=== PATIENT | female | born 1985 | race Caucasian/White ===

== ENCOUNTER 2019-12-28 02:06 | Outpatient (CLI) | payer OTHER, SELFPAY ==
[2019-12-28 07:40] LABS: HCT 41.6 % (36.0-46.0); HGB 13.9 g/dL (12.0-15.5); Mean Corp. HGB Concentration 33.4 g/dL (32.0-36.0); Mean Corpuscular Hemoglobin 31.3 pg (27.0-33.0); Mean Corpuscular Volume 93.7 fL (80-95); Mean Platelet Volume 9.4 fL (8.0-11.0); Platelet Count 281 x1000/uL (130-400); RBC 4.44 m/cumm (4.00-5.20); RBC Distribution Width 11.8 % (11.7-14.6); White Blood Cell Count 5.56 k/cumm (4.4-10.8)
[2019-12-28 08:28] LABS: ALT 21 U/L (14-59); AST 13 U/L (15-37); Albumin 3.6 g/dL (3.4-5.0); Alkaline Phosphatase 42 U/L (46-116); Anion Gap 2.7 mmol/L (3-11); BUN 12 mg/dL (7-18); Bilirubin, Total 0.4 mg/dL (0.2-1.0); CO2 28.3 mmol/L (21.0-32.0); CREATININE 0.94 mg/dL (0.55-1.02); Calcium 9.1 mg/dL (8.5-10.1); Calculated LDL 103 mg/dL (<100); Chloride 102 mmol/L (98-107); Cholesterol 170 mg/dL (<200); Ferritin 20 ng/mL (8-252); Glucose 90 mg/dL (74-106); HDL Cholesterol 53 mg/dL (40-60); Magnesium 1.9 mg/dL (1.8-2.4); Potassium 4.3 mmol/L (3.5-5.1); Sodium 133 mmol/L (136-145); TSH (W/Ref FT4) 2.45 uIU/mL (0.36-3.74); Total Protein 6.8 g/dL (6.4-8.2); Triglyceride 74 mg/dL (<150)
[2019-12-30 04:52] LABS: Vitamin D 25 Total 61.4 ng/ml (30-100)
== END 2019-12-28 02:26 ==
PROVIDERS: PCP Student in an Organized Health Care Education/Training Program; Visit Provider Student in an Organized Health Care Education/Training Program
DX: E61.1 Iron deficiency (principal); K51.20 Ulcerative (chronic) proctitis without complications; K52.9 Noninfective gastroenteritis and colitis, unspecified; K58.9 Irritable bowel syndrome, unspecified; Z13.220 Encounter for screening for lipoid disorders; F32.9 Major depressive disorder, single episode, unspecified; F41.9 Anxiety disorder, unspecified; G43.909 Migraine, unspecified, not intractable, without status migrainosus; Z86.69 Personal history of other diseases of the nervous system and sense organs; N94.6 Dysmenorrhea, unspecified; E55.9 Vitamin D deficiency, unspecified; Q76.49 Other congenital malformations of spine, not associated with scoliosis; N84.0 Polyp of corpus uteri
CPT/HCPCS: 36415; 80053; 80061; 82306; 85027; 82728; 83735; 84443

== ENCOUNTER 2020-01-12 02:05 | Outpatient (CLI) | payer OTHER, SELFPAY ==
--- NOTE | 2020-01-12 06:15 | DI.US_ITS ---
EXAM: US PELVIS TRANSVAGINAL CLINICAL HISTORY: Hx uterine polyps, menorrhagia,N84.0,N92.0. TECHNIQUE: Transabdominal and transvaginal pelvic ultrasound was performed using standard protocol. COMPARISON: No exams were available for comparison FINDINGS: KIDNEYS: Kidneys are symmetric in size. No evidence of renal calculi. No evidence of hydronephrosis. No renal mass or cyst identified. UTERUS: Position: Anteverted. Size: 8.5 long by 4.8 AP by 5.7 transverse cm Endometrium: 0.4 cm. Normal for patient's menstrual status. There is a ovoid hypoechoic area within t he endometrium measuring 0.7 x 0.9 cm. Myometrium: 2 hypoechoic masses are seen arising from the uterus posteriorly. The larger measures 4. 6 x 4.5 x 6.0 cm. The smaller measures 4.4 x 4 x 4.1 cm. These are most suggestive of uterine fibro ids. Cervix: Unremarkable. OVARIES: Right: 3.7 x 2.2 x 2.4 cm Cyst or mass: Small follicular cysts. Left: 3.9 x 2.1 x 2.5 cm Cyst or mass: Small follicular cysts. DOPPLER: Color: Symmetric and uniform flow to both ovaries. No hyperemia. CUL-DE-SAC: Free fluid: Small amount of free fluid adjacent to the right ovary. Other: None. IMPRESSION: 1. Normal sonographic appearance of the kidneys. 2. 0.9 cm hypoechoic nodule within the endometrium. This may represent endometrial polyp. 3. Uterine fibroids. 4. Unremarkable bilateral ovaries. DATA REPOSITORY:
== END 2020-01-12 02:25 ==
PROVIDERS: PCP Student in an Organized Health Care Education/Training Program; Visit Provider Nurse Practitioner Women's Health
DX: N85.8 Other specified noninflammatory disorders of uterus (principal); D25.9 Leiomyoma of uterus, unspecified; N84.0 Polyp of corpus uteri; N92.0 Excessive and frequent menstruation with regular cycle
CPT/HCPCS: 76830; 76856

== ENCOUNTER 2020-03-20 03:38 | Outpatient (CLI) | payer OTHER, SELFPAY ==
[2020-03-20 14:37] LABS: HGB 13.3 g/dL (11.2-15.7); MCHC 33.3 % (32.0-36.0); MCV 93.2 fL (80-95); MPV 9.6 fL (8.0-11.0); Platelet Count 244 10^3/uL (130-400); RBC 4.29 10^6/uL (3.93-5.22); RDW 11.7 % (11.7-14.6); RDW-SD 40.1 fL; WBC 7.66 10^3/uL (4.4-10.8)
[2020-03-20 17:03] LABS: HCG Quant, Pregnancy < 1 mIU/mL (1-3)
== END 2020-03-20 03:58 ==
PROVIDERS: PCP Student in an Organized Health Care Education/Training Program; Visit Provider Obstetrics & Gynecology Gynecology
DX: Z01.818 Encounter for other preprocedural examination (principal)
CPT/HCPCS: 36415; 85027; 86850; 86900; 86901; 84702

== ENCOUNTER 2020-03-20 07:47 | Outpatient (CLI) | payer OTHER, SELFPAY ==
[2020-03-22 20:21] LABS: COVID-19 RT-PCR Result NEGATIVE (Negative)
== END 2020-03-20 08:07 ==
PROVIDERS: PCP Student in an Organized Health Care Education/Training Program; Visit Provider Obstetrics & Gynecology Gynecology
DX: Z11.59 Encounter for screening for other viral diseases (principal); Z01.818 Encounter for other preprocedural examination
CPT/HCPCS: U0003

== ENCOUNTER 2020-03-23 06:17 | Day surgery (SDC) | payer OTHER, SELFPAY ==
[2020-03-23 06:31] VITALS: BP 113/76; PULSE 66; RESP 17; TEMP 36.5; O2SAT 100
[2020-03-23] MEDS: Lactated Ringers 1,000 ML 125 ML IV (07:08)
[2020-03-23] MEDS: Bupivacaine 0.25% Pres-Free 30 ML VIAL (07:48)
--- NOTE | 2020-03-23 08:00 | ENDOMET_PTH ---
PATIENT: Kate Lewis LOC: [facility] U#:[id number] AGE/SX: 34/F ROOM: RE03/23/[address]: Marycarmen De La Torre : 1985 BED: DIS: 03/23/2020 SPEC #: [id number] RECD: 03/23/20 13:00 STATUS: MARLYN RENathaniel #: [id number] RICKY: 03/23/20 08:[address]: Marycarmen De La Torre DEPT: Surgical Specimen RECD BY: Teresa Gaston ENTERED: 03/23/20 13:01 SP TYPE: Endomet OTHR DR: Stefany Tapia DO Tissues: 1 - ENDOMETRIUM BX/CURRETTE Procedures: GROSS AND MICRO LEVEL 4 Comments: [id number]
[2020-03-23] MEDS: Silver Nitrate Stick 1 EACH (08:09)
[2020-03-23 08:17] VITALS: BP 98/58; PULSE 59; RESP 17; TEMP 36.4; O2SAT 98
[2020-03-23 08:22] VITALS: BP 95/57; PULSE 56; RESP 16; TEMP 36.4; O2SAT 99
[2020-03-23 08:27] VITALS: BP 94/57; PULSE 55; RESP 16; TEMP 36.4; O2SAT 99
--- NOTE | 2020-03-23 08:28 | W.PM.DSUDISC ---
Discharge Plan Disposition Patient Disposition: HOME Condition: Good Discharge Details Attending Provider: Marycarmen De La Torre Primary Care Provider: Stefany Tapia Home Meds and New Rx's Prescriptions: No Action lorazepam 0.5 mg tablet 0.25 mg PO DAILY PRNRF: 0 folic acid 400 mcg tablet 0.4 mg PO DAILY RF: 0 omega-3 fatty acids [Fish Oil Concentrate] 1,000 mg capsule 1,000 mg PO DAILY RF: 0 Complex B-100 Tablet Extended Release 1 tab PO DAILY RF: 0 cholecalciferol (vitamin D3) 125 mcg (5,000 unit) capsule 5,000 unit PO DAILY RF: 0 turmeric 400 mg capsule 1,000 mg PO DAILY RF: 0 magnesium gluconate [Mag-G] 27 mg magnesium (500 mg) tablet 200 mg PO DAILY RF: 0 ferrous sulfate 27 mg iron tablet 27 mg PO DAILY RF: 0 mesalamine [Canasa] 1,000 mg suppository 1 gm KS DAILY PRN PRN (Reason: pain, bleeding ) Qty: 42 RF: 3 zolmitriptan 5 mg tablet 5 mg PO DAILY PRN MDD 5mg PRN (Reason: migraine headache) Qty: 10 RF: 1 Discharge Instructions Additional Instructions: Keep your follow-up appointment [facility] Stand Alone Forms: DSU Post Gynecology Surgery Activity:: Activity as Tolerated Diet:: As Tolerated Discharge Orders Discharge Orders: Discharge Order (Routine); Ordered 03/23/20 Ordered By: Marycarmen De La Torre DS: Diagnosis Discharge Diagnosis (1) Abnormal uterine bleeding (AUB): Status: Chronic (2) Hx of dilation and curettage: Status: Acute
--- NOTE | 2020-03-23 08:32 | ROE_ITS ---
Date of service: 03/23/20 Time of Service: 08:32 Operative Note Operative Note DATE OF PROCEDURE: 03/23/20 PRE-OP DIAGNOSIS: abnormal uterine bleeding, endometrial polyp POST-OP DIAGNOSIS: same PROCEDURE: D&C, Hysteroscopy SURGEON: Marycarmen De La Torre ANESTHESIA: MAC ESTIMATED BLOOD LOSS: 5 PATHOLOGY: other (endometrial curettings to pathology) COMPLICATIONS: None Patient was transported to: PACU Patient's condition: stable Indications: 34-year-old G0 female with history of heavy uterine bleeding associated with menses. She is demonstrated fibroid uterus and solitary e ndometrial polyp. Her previous polypectomy was performed in 2016 and provided relief from her heavy irregular bleeding. Findings: Uterus sounded to 10 cm. On hysteroscope exam the endometrium appeared secretory. There was a discrete endometrial polyp at the left uterine sidewall on a broad-based stalk. Both tubal ostia were visualized. There was no evidence of distortion of the uterine cavity from intramural fibroids. Procedure Description: Patient was brought to the operating room where she was placed in the dorsal supine position and monitored anesthesia care was administered. SCDs were in place no antibiotics were administered. She was prepped and draped in the usual sterile fashion. A surgical timeout was performed. A bivalve speculum was placed into the vagina and the anterior lip of the cervix was infiltrated with 1 cc of 0 .25% percent Marcaine without epinephrine. Tenaculum was used to grasp the anterior cervical lip and a paracervical block was performed using 2 cc of quarter percent Marcaine respectively. The cervix was sequentially dilated to a maximum of 18 Sharma. A hysteroscope was inserted with normal saline as the distention medium. The uterine cavity was inspected with the above-noted findings. A serrated banjo curette was inserted into the uterine cavity and all 4 quadrants of the cavity were curetted. This is followed by the insertion of a polyp forcep which was used to remove endometrial tissue. The hysteroscope was reinserted the previously noted polyp had been removed. A second gentle curettage with the serrated curette was performed. Final inspection of the uterine cavity with the hysteroscope showed hemostatic endometrial lining and no intracavitary filling defects. Hysteroscope was removed and tenaculum was removed and was noted to be hemostatic. All instruments removed from the vagina. The patient was then placed in the dorsal supine position awakened from anesthesia and transported recovery in stable condition. All sponge lap and needle counts are correct x2.
[2020-03-23 08:37] VITALS: BP 96/62; PULSE 54; RESP 13; TEMP 36.6; O2SAT 98
[2020-03-23 09:17] VITALS: BP 109/70; PULSE 55; RESP 16; TEMP 36.6; O2SAT 100
== END 2020-03-23 10:16 | disposition home or self-care (01) ==
PROVIDERS: PCP Student in an Organized Health Care Education/Training Program; Visit Provider Obstetrics & Gynecology Gynecology
PROC: 0UDB8ZZ Extraction of Endometrium, Via Natural or Artificial Opening Endoscopic (ICD-10-PCS; CPT 58558; principal; 2020-03-23 07:30)
DX: N93.9 Abnormal uterine and vaginal bleeding, unspecified (principal); N84.0 Polyp of corpus uteri; D25.9 Leiomyoma of uterus, unspecified
CPT/HCPCS: 58558; 88305; J1100; J1885; J2001; J2405

== ENCOUNTER 2020-07-14 12:55 | Outpatient (REF) | payer OTHER, SELFPAY ==
[2020-07-18 15:44] LABS: Calprotectin <15.6 mcg/g
== END 2020-07-14 12:56 | disposition home or self-care (01) ==
LOC: LBN 12:55
PROVIDERS: PCP Student in an Organized Health Care Education/Training Program; Visit Provider Internal Medicine Gastroenterology
DX: K51.211 Ulcerative (chronic) proctitis with rectal bleeding (principal)
CPT/HCPCS: 83993

== ENCOUNTER 2020-07-19 02:09 | Outpatient (CLI) | payer OTHER, SELFPAY ==
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
== END 2020-07-19 02:10 ==
PROVIDERS: PCP Student in an Organized Health Care Education/Training Program; Visit Provider Student in an Organized Health Care Education/Training Program
DX: M79.671 Pain in right foot (principal)
CPT/HCPCS: 73630

== ENCOUNTER 2020-08-22 03:50 | Outpatient (CLI) | payer OTHER, SELFPAY ==
[2020-08-22 10:48] LABS: Abs Immature Grans 0.01 10^3/uL (0.0-0.06); Absolute Basophil Count 0.06 10^3/uL (0.0-0.2); Absolute Lymphocyte Count 2.02 10^3/uL (1.2-3.4); Absolute Monocyte Count 0.35 10^3/uL (0.1-0.8); Absolute Neutrophil Count 3.71 10^3/uL (1.2-6.7); Eosinophils % 1.6; Immature Grans % 0.2; Lymphocytes % 32.3; MCH 31.7 pg (27.0-33.0); MCHC 33.3 % (32.0-36.0); MPV 9.6 fL (8.0-11.0); Monocytes % 5.6; Neutrophils % 59.3; Nucleated RBC 0 %; Platelet Count 285 10^3/uL (130-400); RBC 4.42 10^6/uL (3.93-5.22); RDW 11.3 % (11.7-14.6); RDW-SD 39.7 fL; WBC 6.25 10^3/uL (4.4-10.8)
[2020-08-22 11:29] LABS: Iron 99 ug/dL (50-170); Total Iron Binding Capacity 323 ug/dL (250-450); Transferrin Sat 31 % (15-50)
[2020-08-22 11:41] LABS: Ferritin 25 ng/mL (8-252)
== END 2020-08-22 03:51 | disposition home or self-care (01) ==
LOC: LBO 03:50
PROVIDERS: PCP Student in an Organized Health Care Education/Training Program; Visit Provider Internal Medicine Gastroenterology
DX: K51.211 Ulcerative (chronic) proctitis with rectal bleeding (principal); D50.0 Iron deficiency anemia secondary to blood loss (chronic)
CPT/HCPCS: 36415; 82728; 83540; 83550; 85025

== ENCOUNTER 2020-08-29 11:02 | Outpatient (CLI) | payer OTHER, SELFPAY ==
--- NOTE | 2020-08-28 14:45 | DI.RAD_ITS ---
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 TECHNIQUE: 2D digital imaging was performed. COMPARISON: No exams were available for comparison FINDINGS: No evidence of fracture, listhesis, nor offset of the spinal laminar line. All the disc spaces exhib it normal height. Facet joints unremarkable. On the oblique views there is no foraminal narrowing. No Luschka joint osteophytes. There are no cervical ribs. IMPRESSION: No significant radiograph findings in the cervical spine. Sign rib DATA REPOSITORY: RADIATION DOSE DELIVERED:
--- NOTE | 2020-08-28 14:50 | DI.RAD_ITS ---
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 TECHNIQUE: 2D digital imaging was performed. COMPARISON: No exams were available for comparison FINDINGS: No evidence of compression fracture or listhesis nor abnormal widening of the paraspinal lines. Ther e is no scoliosis but there does appear to be a mild kyphosis at at approximately T9-T10 level. This may be related to posture. There is no wedge compression fracture. No osseous lesions evident. IMPRESSION: DATA REPOSITORY: RADIATION DOSE DELIVERED:
--- NOTE | 2020-08-28 15:05 | DI.RAD_ITS ---
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 TECHNIQUE: 2D digital imaging was performed. COMPARISON: No exams were available for comparison FINDINGS: There is no evidence of fracture or listhesis nor pars interarticularis defects. No disc space narro wing. Sacroiliac joints unremarkable. Bone density normal. Facet joints unremarkable. No osseous lesions. IMPRESSION: DATA REPOSITORY: RADIATION DOSE DELIVERED:
== END 2020-08-29 11:22 ==
PROVIDERS: PCP Student in an Organized Health Care Education/Training Program; Visit Provider Student in an Organized Health Care Education/Training Program
DX: M54.5 Low back pain (principal); M54.6 Pain in thoracic spine; M54.2 Cervicalgia
CPT/HCPCS: 72052; 72072; 72110

== ENCOUNTER 2021-01-16 13:44 | Outpatient (CLI) | payer OTHER, SELFPAY ==
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
--- OUTSIDE RECORDS SUMMARY | 2021-01-16 13:56 | XMS_ITS | Encounter Summary ---
:1985 Author Organization [facility] Address [address] [place] [id number] Selected Encounter This section includes the information on record at [place] for the Encounter. Date/Time Encounter Type Encounter Reason Provider Source Description October 05, 2020 ADM SARSCOV2 GENERAL INTERNAL ICD-10-CM Z23 STEPHANIE JENNINGS I 11:30 AM 100MCG/0.5ML2ND MEDICINE Encounter for E immunization with Provider Comments: Encounter for Immunization IHE Encounter Template Text not used by [place] Assessments - Encounter Diagnoses This section includes the primary and secondary diagnoses documented forthe Encounter. Date/Time Primary/Secondary Diagnosis Name Provider Source Diagnosis October 05, 2020 PRIMARY Encounter for TRINA JENNINGS 11:32 AM immunization [facility] Surgical Procedures: All associated to the encounter This section includes all Surgical Procedures and Surgical Procedure Notes associated to the Encounter.Surgical Procedures This section includes all Surgical Procedures associated to the Encounter.Surgical Procedure Date/Time Procedure Procedure Type Procedure Provider Source Qualifiers October 05, 2020 ADM SARSCOV2 ADM SARSCOV2 LEONID SKELTON PAUL 11:30 AM 100MCG/0.5ML2ND 100MCG/0.5ML2ND [facility] Surgical Notes There are no notes associated with this procedure. Immunizations: All administered on the encounter date This section contains immunizations associated to the Encounter. Immunization Series Date Issued Reaction Comments COVID-19 (MODERNA), MRNA, 2 October 05, 2020 MO D; [id number]; 02/20/2021 LNP-S, PF, 100 MCG/0.5 ML DOSE Encounter Notes: All associated encounter notes This section contains the clinical notes associated to the Encounter. Date/Time Encounter Note(s) Provider Source October 05, 2020 11:31 AM NURSING IMMUNIZATION NOTE: TRINA JENNINGS [facility] LOCAL TITLE: [facility] NSG COVID-19 VACCINE ADMINIS [facility]ATION [facility] STANDARD TITLE: NURSING IMMUNIZATION NOTE DATE OF NOTE: OCTOBER 05, 2020@11:31 ENTRY DATE: OCTOBER 05, 2020@11:31:34 AUTHOR: TRINA JENNINGS EXP COSIGNER: URGENCY: STATUS: COMPLETED The patient was given the EUA fact sheet for thi s vaccine which lists the benefits and side effects of the vaccine and [facility] reviews the risks of the vaccine. The fact sheet was reviewed with the pa tiealva and they were given an opportunity to ask questions. The patient denied any prior severe reaction to this vaccine or its components or a severe aller gic reaction such as anaphylaxis to any vaccine or to any injectable therapy. The patient gave verbal consent to receive the vaccine. Dose #2 The patient received Moderna COVID-19 Vaccine 0.5 ml IM. MVX (Manuf); Lot#; Exp Date: MOD; [id number]; Administration Anatomic site: Right Deltoid Vaccine administered without complications. Th e patient was advised to remain in the facility for 15 minutes post vaccination. The patient was given a completed COVID-19 vaccination record card, a copy of the [facility] Side Effects and Adverse Events Reporting Fact She et and instructed on how to report any adverse reactions. Vaccine administered by policy/protocol. /manny/ TRINA JENNINGS RN Signed: 10/05/2020 11:32 Receipt Acknowledged By: 10/05/2020 11:36 /manny/ RAVI SANABRIA RN
--- OUTSIDE RECORDS SUMMARY | 2021-01-16 13:57 | XMS_ITS | Encounter Summary ---
:1985 Author Organization [facility] Address [address] [place] [id number] Selected Encounter This section includes the information on [place] at [place] for the Encounter. Date/Time Encounter Type Encounter Reason Provider Source Description Sep 07, 2020 ADM SARSCOV2 GENERAL INTERNAL ICD-10-CM Z23 DARRELL GUADALUPE 11:00 AM 100MCG/0.5ML1ST MEDICINE Encounter for R immunization with Provider Comments: Encounter for Immunization IHE Encounter Template Text not used by [facility] Assessments - Encounter Diagnoses This section includes the primary and secondary diagnoses documented forthe Encounter. Date/Time Primary/Secondary Diagnosis Name Provider Source Diagnosis Sep 07, 2020 PRIMARY Encounter for DARRELL GUADALUPE 11:08 AM immunization [facility] Plan of Treatment: Future Appointments (+ 6 months) and Future Tests (+/- 45 days) The Plan of Treatment section includes future care activities for the patient from all [place] treatment facilities. This section includes future appointments and future orders which are active, pending or scheduled.Future Appointments This section includes appointments that were scheduled to occur 6 months from the date of the Encounter, up to a maximum of 20 appointments. The data comes from all [facility]. Appointment Date/Time Appointment Type Appointment Facili ty Name October 05, 2020 11:30 AM AMBULATORY - NONE [facility] Surgical Procedures: All associated to the encounter This section includes all Surgical Procedures and Surgical Procedure Notes associated to the Encounter.Surgical Procedures This section includes all Surgical Procedures associated to the Encounter.Surgical Procedure Date/Time Procedure Procedure Type Procedure Provider Source Qualifiers Sep 07, 2020 ADM SARSCOV2 ADM SARSCOV2 LEONID SKELTON PAUL 11:00 AM 100MCG/0.5ML1ST 100MCG/0.5ML1ST [facility] Surgical Notes There are no notes associated with this procedure. Immunizations: All administered on the encounter date This section contains immunizations associated to the Encounter. Immunization Series Date Issued Reaction Comments COVID-19 (MODERNA), MRNA, 1 Sep 07, 2020 MO D; ; 02/06/2021 LNP-S, PF, 100 MCG/0.5 ML DOSE Encounter Notes: All associated encounter notes This section contains the clinical notes associated to the Encounter. Date/Time Encounter Note(s) Provider Source Sep 07, 2020 11:07 AM NURSING IMMUNIZATION NOTE: DARRELL GUADALUPE [facility] LOCAL TITLE: [facility] COVID-19 VACCINE ADMINIS [facility] STANDARD TITLE: NURSING IMMUNIZATION NOTE DATE OF NOTE: SEP 07, 2020@11:07 ENTRY DATE: SEP 07, 2020@11:07:43 AUTHOR: DARRELL GUADALUPE EXP COSIGNER: URGENCY: STATUS: COMPLETED The patient was given the EUA fact sheet for thi s vaccine which lists the benefits and side effects of the vaccine and [facility] reviews the risks of the vaccine. The fact sheet was reviewed with the pa charles and they were given an opportunity to ask questions. The patient denied any prior severe reaction to this vaccine or its components or a severe aller gic reaction such as anaphylaxis to any vaccine or to any injectable therapy. The patient gave verbal consent to receive the vaccine. Dose #1 The patient received Moderna COVID-19 Vaccine 0. 5 ml IM. MVX (Manuf); Lot#; Exp Date: MOD; ; 11/2020 Administration Anatomic site: Right Deltoid Vaccine administered without complications. Th e patient was advised to remain in the facility for 15 minutes post vaccination. The patient was given a completed COVID-19 vaccination record card, a copy of the [place] Side Effects and Adverse Events Reporting Fact She et and instructed on how to report any adverse reactions.The jill ent was given information on the need to return for another dose of vaccine in 28 days. Vaccine administered by policy/protocol. /manny/ DARRELL SANABRIA,RN,[facility] Signed: 09/07/2020 11:09
== END 2021-01-16 14:04 ==
PROVIDERS: PCP Student in an Organized Health Care Education/Training Program; Visit Provider Student in an Organized Health Care Education/Training Program
DX: S99.912A Unspecified injury of left ankle, initial encounter (principal); X50.1XXA Overexertion from prolonged static or awkward postures, initial encounter; Y99.8 Other external cause status
CPT/HCPCS: 73610

== ENCOUNTER 2021-08-08 04:26 | Outpatient (CLI) | payer OTHER, SELFPAY ==
[2021-08-08 14:16] LABS: Abs Immature Grans 0.02 10^3/uL (0.0-0.06); Absolute Basophil Count 0.06 10^3/uL (0.0-0.2); Absolute Eosinophil Count 0.16 10^3/uL (0.0-0.7); Absolute Lymphocyte Count 2.36 10^3/uL (1.2-3.4); Absolute Monocyte Count 0.56 10^3/uL (0.1-0.8); Absolute Neutrophil Count 5.22 10^3/uL (1.2-6.7); Basophils % 0.7; Eosinophils % 1.9; HCT 41.3 % (36.0-46.0); HGB 13.6 g/dL (11.2-15.7); Immature Grans % 0.2; Lymphocytes % 28.2; MCH 31.2 pg (27.0-33.0); MCHC 32.9 % (32.0-36.0); MCV 94.7 fL (80-95); MPV 9.5 fL (8.0-11.0); Monocytes % 6.7; Neutrophils % 62.3; Nucleated RBC 0 %; Platelet Count 285 10^3/uL (130-400); RBC 4.36 10^6/uL (3.93-5.22); RDW 11.7 % (11.7-14.6); RDW-SD 40.3 fL; WBC 8.38 10^3/uL (4.4-10.8)
[2021-08-08 15:07] LABS: Iron 53 ug/dL (50-170); Total Iron Binding Capacity 355 ug/dL (250-450); Transferrin Sat 15 % (15-50)
[2021-08-08 15:22] LABS: Ferritin 18 ng/mL (8-252)
[2021-08-08 15:50] LABS: C-Reactive Protein < 0.05 mg/dL (0.0-0.3)
== END 2021-08-08 04:27 | disposition home or self-care (01) ==
LOC: LBO 04:26
PROVIDERS: PCP Student in an Organized Health Care Education/Training Program; Visit Provider Internal Medicine Gastroenterology
DX: K51.211 Ulcerative (chronic) proctitis with rectal bleeding (principal)
CPT/HCPCS: 36415; 82728; 83540; 83550; 85025; 86140

== ENCOUNTER 2022-03-11 11:47 | Outpatient (REF) | payer OTHER, SELFPAY ==
--- NOTE | 2022-03-11 11:30 | PAPFT_PTH ---
PATIENT: Kate Lewis LOC: [facility] U#:[id number] AGE/SX: 36/F ROOM: RE03/11/[address]: Marycarmen De La Torre : 1985 BED: DIS: 03/11/2022 SPEC #: [id number] RECD: 03/11/22 13:07 STATUS: MARLYN RENathaniel #: [id number] RICKY: 03/11/22 11:[address]: Marycarmen De La Torre DEPT: [facility] Cytology RECD BY: Teresa Gaston ENTERED: 03/11/22 13:07 SP TYPE: PAPFT OTHR DR: Stefany Tapia DO Tissues: 1 - CX/ENDOCX FOR PAP SMEARS Procedures: PAP THIN PREP/UVM Screening HPV DNA PROBE Comments: [id number]
== END 2022-03-11 11:48 | disposition home or self-care (01) ==
LOC: LBN 11:47
PROVIDERS: PCP Student in an Organized Health Care Education/Training Program; Visit Provider Obstetrics & Gynecology Gynecology
DX: Z12.4 Encounter for screening for malignant neoplasm of cervix (principal); Z11.51 Encounter for screening for human papillomavirus (HPV)
CPT/HCPCS: 88142; 87624

== ENCOUNTER 2022-03-15 02:11 | Outpatient (CLI) | payer OTHER, SELFPAY ==
[2022-03-15 07:57] LABS: Abs Immature Grans 0.01 10^3/uL (0.0-0.06); Absolute Basophil Count 0.06 10^3/uL (0.0-0.2); Absolute Eosinophil Count 0.11 10^3/uL (0.0-0.7); Absolute Lymphocyte Count 1.85 10^3/uL (1.2-3.4); Absolute Monocyte Count 0.42 10^3/uL (0.1-0.8); Absolute Neutrophil Count 3.73 10^3/uL (1.2-6.7); Eosinophils % 1.8; HCT 41.4 % (36.0-46.0); HGB 14.1 g/dL (11.2-15.7); Immature Grans % 0.2; Lymphocytes % 29.9; MCH 31.8 pg (27.0-33.0); MCHC 34.1 % (32.0-36.0); MCV 93 fL (80-95); MPV 9.3 fL (8.0-11.0); Monocytes % 6.8; Neutrophils % 60.3; Platelet Count 280 10^3/uL (130-400); RBC 4.44 10^6/uL (3.93-5.22); RDW 11.8 % (11.7-14.6); RDW-SD 40.2 fL; WBC 6.18 10^3/uL (4.4-10.8)
[2022-03-15 08:52] LABS: ALT 20 U/L (14-59); AST 12 U/L (15-37); Alkaline Phosphatase 60 U/L (46-116); Anion Gap 7.5 mmol/L (3-11); BUN 14 mg/dL (7-18); Bilirubin, Total 0.4 mg/dL (0.2-1.0); CO2 29.5 mmol/L (21.0-32.0); CREATININE 0.9 mg/dL (0.55-1.02); Calcium 9.3 mg/dL (8.5-10.1); Calculated LDL 111 mg/dL (<100); Chloride 101 mmol/L (98-107); Cholesterol 184 mg/dL (<200); Estimated GFR 84.44 (mL/min/1.73m2); Glucose 94 mg/dL (74-106); HDL Cholesterol 54 mg/dL (40-60); Potassium 3.8 mmol/L (3.5-5.1); Sodium 138 mmol/L (136-145); TSH (W/Ref FT4) 2.03 uIU/mL (0.36-3.74); Total Protein 8.1 g/dL (6.4-8.2); Triglyceride 98 mg/dL (<150)
[2022-03-15 19:25] LABS: Estradiol 136 pg/mL (See Note)
[2022-03-15 20:41] LABS: FSH 6.1 mIU/mL (See Note)
[2022-03-15 20:47] LABS: Prolactin 16.3 ng/mL (See Note)
[2022-03-15 20:49] LABS: LH 6.7 mIU/mL (See Note)
[2022-03-18 07:55] LABS: Vitamin D 25 Total 46.7 ng/mL (30-100)
[2022-03-18 18:02] LABS: Testosterone, Total 32 ng/dL (8-60)
[2022-03-20 02:08] LABS: 17-Hydroxyprogesterone 61 ng/dL
== END 2022-03-15 02:12 | disposition home or self-care (01) ==
LOC: LBO 02:11
PROVIDERS: PCP Student in an Organized Health Care Education/Training Program; Visit Provider Obstetrics & Gynecology Gynecology
DX: E34.9 Endocrine disorder, unspecified (principal); D64.9 Anemia, unspecified; K51.211 Ulcerative (chronic) proctitis with rectal bleeding
CPT/HCPCS: 36415; 80053; 80061; 82306; 84403; 82670; 83001; 83002; 83498; 84146; 84443; 85025

== ENCOUNTER 2022-03-25 02:54 | Outpatient (CLI) | payer OTHER, SELFPAY ==
[2022-03-25 12:56] LABS: HGB 13.2 g/dL (11.2-15.7)
[2022-03-25 13:51] LABS: Iron 61 ug/dL (50-170); Total Iron Binding Capacity 350 ug/dL (250-450); Transferrin Sat 17 % (15-50)
[2022-03-25 14:06] LABS: Ferritin 34 ng/mL (8-252)
== END 2022-03-25 02:55 | disposition home or self-care (01) ==
LOC: LBO 02:54
PROVIDERS: PCP Student in an Organized Health Care Education/Training Program; Visit Provider Student in an Organized Health Care Education/Training Program
DX: E61.1 Iron deficiency (principal); E55.9 Vitamin D deficiency, unspecified; N92.0 Excessive and frequent menstruation with regular cycle; G43.829 Menstrual migraine, not intractable, without status migrainosus; N94.6 Dysmenorrhea, unspecified
CPT/HCPCS: 36415; 82728; 83540; 83550; 85018

== ENCOUNTER 2022-08-23 02:53 | Outpatient (CLI) | payer OTHER, SELFPAY ==
[2022-08-23 16:22] LABS: Abs Immature Grans 0.02 10^3/uL (0.0-0.06); Absolute Basophil Count 0.07 10^3/uL (0.0-0.2); Absolute Lymphocyte Count 2.53 10^3/uL (1.2-3.4); Absolute Monocyte Count 0.67 10^3/uL (0.1-0.8); Absolute Neutrophil Count 4.72 10^3/uL (1.2-6.7); Basophils % 0.9; Eosinophils % 2.4; HCT 41.5 % (36.0-46.0); HGB 14.1 g/dL (11.2-15.7); Immature Grans % 0.2; Lymphocytes % 30.8; MCH 31.1 pg (27.0-33.0); MCV 92 fL (80-95); MPV 9.4 fL (8.0-11.0); Monocytes % 8.2; Neutrophils % 57.5; Platelet Count 287 10^3/uL (130-400); RBC 4.53 10^6/uL (3.93-5.22); RDW 11.7 % (11.7-14.6); RDW-SD 39.5 fL; WBC 8.21 10^3/uL (4.4-10.8)
[2022-08-23 17:06] LABS: Ferritin 26 ng/mL (8-252); TSH (W/Ref FT4) 1.53 uIU/mL (0.36-3.74)
[2022-08-23 17:22] LABS: Iron 68 ug/dL (50-170); Total Iron Binding Capacity 325 ug/dL (250-450); Transferrin Sat 21 % (15-50)
== END 2022-08-23 02:54 | disposition home or self-care (01) ==
PROVIDERS: PCP Student in an Organized Health Care Education/Training Program; Visit Provider Student in an Organized Health Care Education/Training Program
DX: E07.89 Other specified disorders of thyroid (principal); G43.829 Menstrual migraine, not intractable, without status migrainosus; N94.6 Dysmenorrhea, unspecified; Z86.39 Personal history of other endocrine, nutritional and metabolic disease
CPT/HCPCS: 36415; 82728; 83540; 83550; 84443; 85025

== ENCOUNTER 2022-11-20 02:42 | Outpatient (CLI) | payer OTHER, SELFPAY ==
[2022-11-20 10:47] LABS: Iron 60 ug/dL (50-170)
== END 2022-11-20 02:43 | disposition home or self-care (01) ==
LOC: LBO 02:42
PROVIDERS: PCP Student in an Organized Health Care Education/Training Program; Visit Provider Student in an Organized Health Care Education/Training Program
DX: K51.211 Ulcerative (chronic) proctitis with rectal bleeding; G43.829 Menstrual migraine, not intractable, without status migrainosus; N94.19 Other specified dyspareunia; Z83.49 Family history of other endocrine, nutritional and metabolic diseases
CPT/HCPCS: 36415; 83540

== ENCOUNTER 2023-09-03 05:02 | Outpatient (CLI) | payer OTHER, SELFPAY ==
[2023-09-03 07:39] LABS: Absolute Basophil Count 0.05 10^3/uL (0.0-0.2); Absolute Eosinophil Count 0.07 10^3/uL (0.0-0.7); Absolute Lymphocyte Count 1.66 10^3/uL (1.2-3.4); Absolute Neutrophil Count 4.17 10^3/uL (1.2-6.7); Basophils % 0.8; Eosinophils % 1.1; HGB 13.8 g/dL (11.2-15.7); Lymphocytes % 26.1; MCH 31.3 pg (27.0-33.0); MCHC 33.7 % (32.0-36.0); MCV 93 fL (80-95); MPV 9.6 fL (8.0-11.0); Monocytes % 6.3; Neutrophils % 65.7; Platelet Count 288 10^3/uL (130-400); RBC 4.41 10^6/uL (3.93-5.22); RDW 11.9 % (11.7-14.6); RDW-SD 40.6 fL; WBC 6.35 10^3/uL (4.4-10.8)
[2023-09-03 07:43] LABS: ESR 2 mm/hr (0-20)
[2023-09-03 08:11] LABS: Folate 8.1 ng/mL (8.6-20.0)
[2023-09-03 08:14] LABS: Iron 89 ug/dL (50-170); Total Iron Binding Capacity 346 ug/dL (250-450); Transferrin Sat 26 % (15-50)
[2023-09-03 08:17] LABS: Vitamin D 25 Total 40.4 ng/mL (30-100)
[2023-09-03 08:22] LABS: ALT 23 U/L (14-59); AST 12 U/L (15-37); Albumin 3.6 g/dL (3.4-5.0); Alkaline Phosphatase 57 U/L (46-116); Anion Gap 7.5 mmol/L (3-11); BUN 15 mg/dL (7-18); Bilirubin, Total 0.4 mg/dL (0.2-1.0); CO2 28.5 mmol/L (21.0-32.0); CREATININE 0.9 mg/dL (0.55-1.02); Calcium 9.4 mg/dL (8.5-10.1); Calculated LDL 105 mg/dL (<100); Chloride 102 mmol/L (98-107); Cholesterol 184 mg/dL (<200); Estimated GFR 83.92 (mL/min/1.73m2); Ferritin 19 ng/mL (8-252); Glucose 109 mg/dL (74-106); HDL Cholesterol 55 mg/dL (40-60); Potassium 4.2 mmol/L (3.5-5.1); Sodium 138 mmol/L (136-145); Total Protein 7.3 g/dL (6.4-8.2); Triglyceride 124 mg/dL (<150); Vitamin B12 264 pg/mL (193-986)
[2023-09-03 08:31] LABS: Bilirubin, Direct 0.1 mg/dL (0.0-0.2)
[2023-09-03 08:32] LABS: C-Reactive Protein < 0.50 mg/dL (<or=0.5)
[2023-09-04 21:01] LABS: Lab Add On Test DONE
[2023-09-04 21:15] LABS: Hemoglobin A1C 5.6 % (<5.7)
== END 2023-09-03 05:03 | disposition home or self-care (01) ==
LOC: LBO 05:02
PROVIDERS: PCP Student in an Organized Health Care Education/Training Program; Visit Provider Student in an Organized Health Care Education/Training Program
DX: G43.829 Menstrual migraine, not intractable, without status migrainosus (principal); K51.211 Ulcerative (chronic) proctitis with rectal bleeding; N93.9 Abnormal uterine and vaginal bleeding, unspecified; Z86.2 Personal history of diseases of the blood and blood-forming organs and certain disorders involving the immune mechanism; Z13.220 Encounter for screening for lipoid disorders; Z91.89 Other specified personal risk factors, not elsewhere classified; G43.009 Migraine without aura, not intractable, without status migrainosus; K52.9 Noninfective gastroenteritis and colitis, unspecified; Z87.01 Personal history of pneumonia (recurrent); E61.1 Iron deficiency
CPT/HCPCS: 36415; 80053; 80061; 80076; 82306; 85652; 82607; 82728; 82746; 83036; 83540; 83550; 85018; 85025; 86140

== ENCOUNTER 2024-01-29 20:32 | Outpatient (REF) | payer OTHER, SELFPAY ==
[2024-02-03 16:50] LABS: Calprotectin <50.0 mcg/g
== END 2024-01-29 20:33 | disposition home or self-care (01) ==
LOC: LBN 20:32
PROVIDERS: PCP Student in an Organized Health Care Education/Training Program; Visit Provider Nurse Practitioner Adult Health
DX: K51.211 Ulcerative (chronic) proctitis with rectal bleeding (principal)
CPT/HCPCS: 83993

== ENCOUNTER 2024-03-19 15:25 | Emergency (ER) | payer OTHER, SELFPAY ==
[2024-03-19 15:26] VITALS: BP 123/80; PULSE 69; RESP 18; TEMP 36.6; O2SAT 98
--- NOTE | 2024-03-19 15:45 | DI.RAD_ITS ---
Exam(s) XR KNEE LT 3V AP,LAT,KIRK EXAM: XR KNEE LT 3V AP,LAT,KIRK CLINICAL HISTORY: fall, pain, felt and heard snap. TECHNIQUE: 2D digital imaging was performed. COMPARISON: No exams were available for comparison FINDINGS: 3 views No evidence of acute fracture although there does appear to be a moderate size joint effusion which s ignifies probable internal derangement. No joint space narrowing nor degenerative changes. No osseo us lesions. Bone density normal. IMPRESSION: Acute osseous findings but there is a joint effusion signifying probable internal derangement. Appro priate follow-up recommended. DATA REPOSITORY: RADIATION DOSE DELIVERED:
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
[2024-03-19] MEDS: Acetaminophen 325 MG TAB 650 MG PO (15:56)
[2024-03-19] MEDS: Ibuprofen 600 MG TAB PO (15:56)
--- NOTE | 2024-03-19 16:07 | DI.MRI_ITS ---
Exam(s) MR LOWER JOINT LT WO EXAM: MR LOWER JOINT LT WO CLINICAL HISTORY: knee trauma, felt pop, cant walk TECHNIQUE: Multiplanar multisequence MRI of the knee was performed. COMPARISON: Plain films earlier same date reviewed. FINDINGS: EFFUSION: There is a moderate size knee joint effusion and there is a E Mitchell cyst in the medial popl iteal fossa which measures 3 cm length by 1.2 cm AP x 0.9 cm wide. There are no obvious loose intra- articular bodies. MARROW:There is significant bone contusion signal the posterior aspect of the lateral tibial plateau. There is no bone contusions signal in the femoral condyles nor within the patella nor within the fi bular head and neck. There are no significant osseous lesions. PATELLOFEMORAL COMPARTMENT: The quadriceps tendon is intact. The patellar ligament is intact. There is no significant thinning of the retropatellar cartilage. No evidence of fissure nor signific ant chondral defect. No osteochondral defect at this level.There is no intraosseous signal to sugges t recent patellar dislocation. There are no patellar retinacular tears. CRUCIATE LIGAMENTS: There is significant signal abnormality in the superior half of the anterior cruc iate ligament which has appearance of an acute tear of this structure.The posterior cruciate ligament is intact. MEDIAL COMPARTMENT/MEDIAL MENISCUS: There are no tears of the medial meniscus evident.. There are no chondral defects, osteochondral defects, subarticular marrow edema, nor osteophytes evid ent. MEDIAL COLLATERAL LIGAMENT: Intact LATERAL COMPARTMENT/LATERAL MENISCUS: There is no evidence of lateral meniscal tear.There are no barry dral defects, osteochondral defects, subarticular marrow edema, nor osteophytes evident in the femora l condyles..Significant area bone edema in the posterior aspect of the lateral tibial plateau. No ab normal intraosseous signal seen in the adjacent fibular head and neck. ILIOTIBIAL BAND: Intact LATERAL COLLATERAL LIGAMENT COMPLEX: The fibular collateral ligament is intact. The biceps femoris t endon is intact.Popliteus muscle and tendon are intact. IMPRESSION: 1. The main finding here in the LEFT knee is an acute appearing tear of the ACL. The tear is in the superior half of this structure. There is an associated joint effusion and there is some bone contus ion signal in the posterior aspect of the lateral tibial plateau. There is no bone contusion signal evident in the femoral condyles. 2. There is no tear of the PCL and there are no collateral ligament tears. 3. There are no meniscal tears evident. 4. No significant findings in the patellofemoral compartment. Called report to ER 03/19/2024 5:09 pm DATA REPOSITORY:
--- NOTE | 2024-03-19 16:07 | DI.MRI_ITS ---
Exam(s) MR LOWER JOINT RT WO EXAM: MR LOWER JOINT RT WO CLINICAL HISTORY: knee trauma direct blow, cannot walk TECHNIQUE: Multiplanar multisequence MRI of the knee was performed. COMPARISON: MR MR LOWER JOINT LT WO from 03/19/2024 FINDINGS: EFFUSION: There is some moderate-large size right knee joint effusion and there is a small 1 cm Mitchell cyst in the medial popliteal fossa. There are no loose intra-articular bodies evident. There are n o obvious thickened plicae bands evident MARROW:There is bone contusion signal in lateral aspect of the lateral tibial plateau. No bone edema in the medial tibial plateau nor within the femoral condyles nor within the fibular head and neck no r with in the patella. There are no significant osseous lesions. PATELLOFEMORAL COMPARTMENT: The quadriceps tendon is intact. The patellar ligament is intact. There is no significant prepatellar soft tissue swelling. There is mild increased signal within the retropatellar cartilage over the lateral facet but without a true defect nor fissure nor osteochondral defect and there is no abnormal intraosseous signal with in the patella itself.There is no intraosseous signal to suggest recent patellar dislocation. There a re no patellar retinacular tears. CRUCIATE LIGAMENTS: Mild increased signal in the ACL noted but without evidence of a significant tear of this structure.The posterior cruciate ligament is intact. MEDIAL COMPARTMENT/MEDIAL MENISCUS: There are no tears of the medial meniscus evident.. There are no chondral defects, osteochondral defects, subarticular marrow edema, nor osteophytes evid ent. MEDIAL COLLATERAL LIGAMENT: Intact LATERAL COMPARTMENT/LATERAL MENISCUS: There is no evidence of lateral meniscal tear.There are no barry dral defects, osteochondral defects, subarticular marrow edema, nor osteophytes evident. ILIOTIBIAL BAND: Intact LATERAL COLLATERAL LIGAMENT COMPLEX: The fibular collateral ligament is intact. The biceps femoris t endon is intact.Popliteus muscle and tendon are intact. IMPRESSION: 1. There is a moderate-large right knee joint effusion as well as an area of subarticular bone contus ion in the lateral tibial plateau (without a true tibial plateau fracture). There are no loose intra -articular bodies evident. 2. There is no high-grade tear of the anterior cruciate ligament (as is present on the opposite-left side) and there is no tear of the posterior cruciate ligament nor significant collateral ligament tea rs. 3. There are no meniscal tears evident 4. There is mild contusion-edema signal evident in the retropatellar cartilage over the lateral edawrds lar facet. However, there is no evidence of detached cartilage fragment/osteochondral defect nor fis sure in the cartilage at this level and there is also no abnormal intraosseous signal in the patella at this level nor patellar retinacular tears. Also no evidence of abnormal bone signal to suggest re cent patellar dislocation. Findings discussed by phone with ER physician following completion of this study 03/19/2024 DATA REPOSITORY:
[2024-03-19 18:19] VITALS: BP 121/83; PULSE 72; RESP 20; TEMP 36.9; O2SAT 97
--- NOTE | 2024-03-20 12:50 | NUR.NOTE ---
Accessed Pt chart to obtain the DX for the [facility] paperwork
== END 2024-03-19 19:24 | disposition home or self-care (01) ==
PROVIDERS: Emergency Provider Emergency Medicine; PCP Student in an Organized Health Care Education/Training Program
DX: S83.512A Sprain of anterior cruciate ligament of left knee, initial encounter (principal); M25.462 Effusion, left knee; M25.461 Effusion, right knee; M71.22 Synovial cyst of popliteal space [Baker], left knee; M71.21 Synovial cyst of popliteal space [Baker], right knee; W54.1XXA Struck by dog, initial encounter; Y93.66 Activity, soccer; Y92.017 Garden or yard in single-family (private) house as the place of occurrence of the external cause
CPT/HCPCS: 73562; 73721; 99285; 99284

== ENCOUNTER 2024-03-23 22:20 | Outpatient (CLI) | payer OTHER, SELFPAY ==
[2024-03-23 15:25] LABS: Abs Immature Grans 0.02 10^3/uL (0.0-0.06); Absolute Basophil Count 0.06 10^3/uL (0.0-0.2); Absolute Eosinophil Count 0.17 10^3/uL (0.0-0.7); Absolute Lymphocyte Count 2.25 10^3/uL (1.2-3.4); Absolute Monocyte Count 0.54 10^3/uL (0.1-0.8); Absolute Neutrophil Count 3.97 10^3/uL (1.2-6.7); Basophils % 0.9 %; Eosinophils % 2.4 %; HCT 37.5 % (36.0-46.0); HGB 12.4 g/dL (11.2-15.7); Immature Grans % 0.3 %; Lymphocytes % 32.1 %; MCH 31.2 pg (27.0-33.0); MCHC 33.1 % (32.0-36.0); MCV 94 fL (80-95); MPV 9.4 fL (8.0-11.0); Monocytes % 7.7 %; Neutrophils % 56.6 %; Platelet Count 309 10^3/uL (130-400); RBC 3.98 10^6/uL (3.93-5.22); RDW 12.3 % (11.7-14.6); RDW-SD 42.5 fL; WBC 7.01 10^3/uL (4.4-10.8)
== END 2024-03-23 22:21 | disposition home or self-care (01) ==
PROVIDERS: PCP Student in an Organized Health Care Education/Training Program; Visit Provider Obstetrics & Gynecology Gynecology
DX: N93.9 Abnormal uterine and vaginal bleeding, unspecified (principal); Z01.419 Encounter for gynecological examination (general) (routine) without abnormal findings
CPT/HCPCS: 36415; 85025

== ENCOUNTER 2024-10-11 04:31 | Outpatient (CLI) | payer OTHER, SELFPAY ==
[2024-10-11 16:53] LABS: Abs Immature Grans 0.02 10^3/uL (0.0-0.06); Absolute Basophil Count 0.07 10^3/uL (0.0-0.2); Absolute Lymphocyte Count 2.76 10^3/uL (1.2-3.4); Absolute Monocyte Count 0.58 10^3/uL (0.1-0.8); Absolute Neutrophil Count 5.07 10^3/uL (1.2-6.7); Basophils % 0.8 %; Eosinophils % 2.3 %; HCT 39.6 % (36.0-46.0); HGB 13.4 g/dL (11.2-15.7); Immature Grans % 0.2 %; Lymphocytes % 31.7 %; MCH 30.7 pg (27.0-33.0); MCHC 33.8 % (32.0-36.0); MCV 91 fL (80-95); MPV 9.5 fL (8.0-11.0); Monocytes % 6.7 %; Neutrophils % 58.3 %; Platelet Count 314 10^3/uL (130-400); RBC 4.37 10^6/uL (3.93-5.22); RDW 12.4 % (11.7-14.6); RDW-SD 40.6 fL
[2024-10-11 18:20] LABS: ALT 19 U/L (14-59); AST 10 U/L (15-37); Albumin 3.5 g/dL (3.4-5.0); Alkaline Phosphatase 72 U/L (46-116); Bilirubin, Direct 0.1 mg/dL (0.0-0.2); Bilirubin, Total 0.2 mg/dL (0.2-1.0); Ferritin 46 ng/mL (8-252); Total Protein 7.4 g/dL (6.4-8.2)
[2024-10-12 19:09] LABS: Iron 38 ug/dL (50-170); Total Iron Binding Capacity 335 ug/dL (250-450); Transferrin Sat 11 % (15-50)
[2024-10-12 19:37] LABS: Vitamin B12 361 pg/mL (193-986)
== END 2024-10-11 04:32 | disposition home or self-care (01) ==
PROVIDERS: PCP Student in an Organized Health Care Education/Training Program; Visit Provider Student in an Organized Health Care Education/Training Program
DX: K51.211 Ulcerative (chronic) proctitis with rectal bleeding (principal)
CPT/HCPCS: 36415; 80076; 82607; 82728; 83540; 83550; 85025

== ENCOUNTER 2024-10-14 15:42 | Outpatient (REF) | payer OTHER, SELFPAY ==
[2024-10-18 18:43] LABS: Calprotectin <50.0 mcg/g
== END 2024-10-14 15:43 | disposition home or self-care (01) ==
LOC: LBN 15:42
PROVIDERS: PCP Student in an Organized Health Care Education/Training Program; Visit Provider Student in an Organized Health Care Education/Training Program
DX: K51.211 Ulcerative (chronic) proctitis with rectal bleeding (principal)
CPT/HCPCS: 83993

== ENCOUNTER 2025-02-16 01:53 | Outpatient (CLI) | payer OTHER, SELFPAY ==
[2025-02-16 12:09] LABS: Abs Immature Grans 0.01 10^3/uL (0.0-0.06); HCT 39.4 % (36.0-46.0); HGB 13.2 g/dL (11.2-15.7); Immature Grans % 0.1 %; MCH 30.9 pg (27.0-33.0); MCHC 33.5 % (32.0-36.0); MCV 92 fL (80-95); MPV 9.2 fL (8.0-11.0); Platelet Count 313 10^3/uL (130-400); RBC 4.27 10^6/uL (3.93-5.22); RDW 12.0 % (11.7-14.6); RDW-SD 40.8 fL; WBC 7.10 10^3/uL (4.4-10.8)
[2025-02-16 13:19] LABS: Iron 55 ug/dL (50-170); Total Iron Binding Capacity 309 ug/dL (250-450); Transferrin Sat 18 % (15-50)
[2025-02-16 13:34] LABS: Ferritin 67 ng/mL (8-252)
== END 2025-02-16 01:54 | disposition home or self-care (01) ==
PROVIDERS: Visit Provider Internal Medicine Gastroenterology
DX: K51.211 Ulcerative (chronic) proctitis with rectal bleeding (principal)
CPT/HCPCS: 36415; 82728; 83540; 83550; 85025

== ENCOUNTER 2025-04-07 01:28 | Outpatient (CLI) | payer OTHER, SELFPAY ==
[2025-04-07 13:56] LABS: TSH (W/Ref FT4) 1.17 uIU/mL (0.36-3.74); Vitamin B12 456 pg/mL (193-986); Vitamin D 25 Total 34 ng/mL (30-100)
== END 2025-04-07 01:29 | disposition home or self-care (01) ==
LOC: LBO 01:28
PROVIDERS: Visit Provider Obstetrics & Gynecology
DX: E55.9 Vitamin D deficiency, unspecified (principal); R63.5 Abnormal weight gain
CPT/HCPCS: 36415; 82306; 82607; 84443

== ENCOUNTER → 2025-04-07 01:54 | Outpatient (CLI) | payer OTHER, SELFPAY ==
--- NOTE | 2025-04-07 13:00 | DI.MAMMO_ITS ---
Exam(s) MAMMO SCREENING EXAM: MAMMO SCREENING CLINICAL HISTORY: screening TECHNIQUE: Bilateral full field digital CC and MLO mammographic images were obtained with 3D tomosynthesis and utilizing computer aided detection (CAD). COMPARISON: This is a baseline examination. There are no priors for comparison. FINDINGS: Masses/Architectural Distortion: No suspicious masses or areas of architectural distortion are present. Microcalcifications: No suspicious pleomorphic-type are seen. Skin Thickening/Nipple Retraction: None. IMPRESSION: 1. There is no evidence for malignancy seen at this time. 2. Unless there is more urgent need, screening mammography is recommended, as per [place] [employer] guidelines. BI-RADS Category 1 - Negative Breast Density - Category C - The breast are heterogeneously dense, which may obscure small masses. Breast density Category C or D implies that the patient has dense breast tissue. Dense breast tissue can make it harder to find cancer on a mammogram. Dense breast tissue is also associated with an increased risk of breast cancer. This information about the result of the mammogram report was provided to the patient to raise their awareness. Use this report when you speak with the patient about their risks for breast cancer, which includes their family history. At that time, you may recommend additional screening tests (Ultrasound or MRI) as these tests may add significant information. A negative radiographic report should not delay biopsy if a dominant or clinically suspicious mass is present. Up to ten percent of cancers are not identified on mammography. A negative report may reinforce clinical impression. Adenosis and dense breasts may obscure an underlying neoplasm. False positive reports average 6 to 10%. Patient will receive a letter notifying them of these results.
== END ==
PROVIDERS: PCP Family Medicine; Visit Provider Obstetrics & Gynecology
DX: Z12.31 Encounter for screening mammogram for malignant neoplasm of breast (principal)
CPT/HCPCS: 77063; 77067

== ENCOUNTER 2025-05-04 12:51 | Outpatient (REF) | payer OTHER, SELFPAY | END 2025-05-04 12:52 | disposition home or self-care (01) | LOC: LBN 12:51 | PROVIDERS: Visit Provider Internal Medicine Gastroenterology | DX: K51.211 Ulcerative (chronic) proctitis with rectal bleeding (principal) | CPT/HCPCS: 83993 ==